=== PATIENT | female | born 2005 | race Caucasian/White ===

== ENCOUNTER 2025-10-13 14:42 | Outpatient (CLI) | payer OTHER | END 2025-10-13 14:43 | disposition home or self-care (01) | LOC: SCSMRI 14:42 | PROVIDERS: ATTEND Family Medicine | DX: S83.015D Lateral dislocation of left patella, subsequent encounter (principal); S83.8X2D Sprain of other specified parts of left knee, subsequent encounter; S76.112D Strain of left quadriceps muscle, fascia and tendon, subsequent encounter; S80.02XD Contusion of left knee, subsequent encounter; S70.12XD Contusion of left thigh, subsequent encounter ==